=== PATIENT | male | born 1960 ===

== ENCOUNTER 2023-10-08 19:30 | Inpatient (IN) | payer BC ==
[~2023-10-08] VITALS: Ht 170.2 cm; Wt 72.0 kg
--- NOTE | 2023-10-08 20:20 | NUR ---
PT ARRIVED TO [facility] FROM [facility] VIA EMS. PT IS BEING ADMITTED WITH A SBO TO HOSPITALIST WITH A SURGICAL CONSULT. PT IS AXOX3. PT IS ON RA. PT'S VSS. PT HAD NS WITH 40KCL RUNNING IN TRANSIT, STOPPED ON ARRIVAL. KIRK PLANT OPERATIONS COORDINATOR BEDSIDE TO EVALUATE PT. KIRK NOTIFIED OF PTS ARRIVAL. 2030-KIRK AND BEDSIDE. PT IS NPO. LR STARTED. LAB CALLED FOR STAT LABS. PT ORIENTED TO ROOM AND FLOOR. CALL LIGHT GIVEN.
[2023-10-08] MEDS ORDERED: LR 1,000 ML IV SCH (20:30)
[2023-10-08] MEDS ORDERED: HYDROmorphone 0.5 MG/0.5 ML SYRINGE IV PRN (20:45)
[2023-10-08] MEDS ORDERED: metroNIDAZOLE 100 ML IV SCH (21:00)
[2023-10-08] MEDS ORDERED: Ondansetron 4 MG/2 ML VIAL IV PRN (21:00)
[2023-10-08 21:03] VITALS: BP_SYST 109
[2023-10-08 21:18] VITALS: BP 119/80; PULSE 80; TEMP 98.5
[2023-10-08 21:39] LABS: INR 1.3 (0.8-3.0); PROTHROMBIN TIME 13.5 SECONDS (9.7-12.8)
[2023-10-08 21:51] LABS: CALCIUM 8.4 mg/dL (8.4-10.2); CREATININE, serum 1.41 mg/dL (0.72-1.25); MAGNESIUM 2.1 mg/dL (1.6-2.6); PHOSPHOROUS 3.6 mg/dL (2.3-4.7); POTASSIUM 3.3 mmol/L (3.5-4.5)
[2023-10-08] MEDS ORDERED: Cefepime 1 G in Water For Injection,Sterile 10 ML IV SCH (22:00)
[2023-10-08] MEDS ORDERED: *Potassium Replacement Protocol MC SCH ×2 (22:30→22:45)
[2023-10-08] MEDS ORDERED: Potassium Chloride 100 ML IV SCH ×2 (22:30→22:45)
[2023-10-08 23:11] VITALS: BP 109/68; PULSE 73; TEMP 98.4
[2023-10-08 23:20] LABS: COLLECTION METHOD CLEAN CATCH
--- NOTE | 2023-10-08 23:50 | NUR ---
2315-PT COMPLAINING OF IV BURING. IV KCL SLOWED DOWN. 2325-PT COMPALINING THAT IV IS STILL BURINING. IV KCL CHANGED TO ANOTHER IV SITE AND SLOWED DOWN AGAIN. 2335-PT STILL STATING THAT IV IS BURING. KCL Y-SITED INTO IVF AND SLOWED DOWN.
[2023-10-09] VITALS (11 sets, daily range): BP systolic 101–137; BP diastolic 69–81; PULSE 72–106; TEMP 97.6–99.2
[2023-10-09 00:18] LABS: URINE COLOR Amber (YELLOW)
[2023-10-09 00:19] LABS: PH 5.5 (5.0-8.5); URINE APPEARANCE Clear (CLEAR/HAZY); URINE BLOOD Negative (NEGATIVE); URINE GLUCOSE Negative (NEGATIVE); URINE KETONE TRACE (NEGATIVE); URINE NITRATE Negative (NEGATIVE); URINE PROTEIN(semi-quant) 2+ (NEGATIVE); URINE UROBILINOGEN 0.2 E.U/dL (0.2-1.0)
[2023-10-09 00:24] LABS: MUCOUS Present (NOT PRESENT); URINE BACTERIA Moderate /hpf (NONE SEEN); URINE RBC 0-2 /hpf (0-2)
[2023-10-09 06:36] LABS: MEAN CELL VOLUME 86 fl (80.0-100.0); MEAN CORPUSCULAR HEMOGLOBIN 31 pg (27-31); MEAN CORPUSCULAR HGB CONC 35 g/dl (33.0-37.0); MEAN PLATELET VOLUME 9.9 fl (7.4-10.4); PLATELET COUNT 184 K/mm3 (130-400); RED BLOOD COUNT 3.94 M/mm3 (4.20-5.60)
[2023-10-09 06:51] LABS: HEMATOCRIT 33.9 % (42.0-52.0)
[2023-10-09 06:58] LABS: ALBUMIN 2.3 gm/dL (3.4-4.8); BILIRUBIN,TOTAL 1.7 mg/dL (0.2-1.2); CALCIUM 8.1 mg/dL (8.4-10.2); CREATININE, serum 0.91 mg/dL (0.72-1.25); POTASSIUM 3.2 mmol/L (3.5-4.5); TOTAL PROTEIN 5.3 gm/dL (6.2-8.1)
[2023-10-09] MEDS ORDERED: Potassium Chloride 100 ML IV SCH (07:00)
[2023-10-09 07:10] LABS: BAND 14 % (0-10); EOSINOPHIL 2 % (0-4); LYMPHOCYTE 4 % (20.0-51.0); NEUTROPHILS 79 % (42.0-75.2); PLATELET ESTIMATE NORMAL (NORMAL)
--- NOTE | 2023-10-09 07:41 | NUR ---
Patient awake, alert and oriented. C/O left sided abdominal pain, worsening with pain. PRN given as ordered. Bed in lowest position with call light within reach. Steady on feet, assisted to the bathroom.
[2023-10-09] MEDS ORDERED: Influenza Virus Vaccine, Quad '23-24 (6 MOS+) 0.5 ML SYRINGE IM SCH (09:00)
--- NOTE | 2023-10-09 10:00 | NUR ---
Customer Service Assistant met with patient to discuss discharge planning. Patient lives in [place] with his , Alona (ph#[phone]) who is at bedside. Patient does not have primary care set up as they only recently moved to [place]. Patient would be agreeable to have primary care set up with [facility] at discharge. Patient uses [facility] in for medications and does not use any DME. Patient is independent with ADLS and is employed at [employer]. Patient does not have DPOA-HC and is not interested in completing one at this time. Patient plans to return home at time of discharge. Discharge Plan: Home, needs assistance setting up PCP
[2023-10-09] MEDS ORDERED: MOTRIN 200200 MG/TAB PO (10:21)
[2023-10-09] MEDS ORDERED: Pantoprazole 40 MG in NS 10 ML IV SCH (11:00)
[2023-10-09] MEDS ORDERED: *Potassium Replacement Protocol MC SCH (11:00)
--- NOTE | 2023-10-09 12:28 | NUR ---
D: Initial visit: Barrel Burner stopped by room on rounds. Pt was resting and content with in the room. A: Pt has no needs right now. Pt has just moved from [place] to [place]. P: Barrel Burner informed pt that if he needed anything to let his nurse know. Barrel Burner will follow up as needed.
--- NOTE | 2023-10-09 18:00 | NUR ---
Patient able to tolerate clear liquids throughout the day, still having abdominal pain but states it is not worse after drinking fluids. Passing gas, no BM today. Bed in lowest position with call light within reach. at the bedside.
--- NOTE | 2023-10-09 18:50 | NUR ---
PT RESTING IN BED WATCHING TV. BEDSIDE. PT HAS IVF RUNNING AND KCL RUNNING. PT IS ON RA. PT IS NON TELE. PT DRINKING CLEAR LIQUIDS AND STATES ITS GOING OK. PT IS AXOX3. PT HAS CALL LIGHT AND INSTRUCTED TO CALL WITH ALL NEEDS.
[2023-10-10] VITALS (12 sets, daily range): BP systolic 111–142; BP diastolic 74–83; PULSE 97–111; TEMP 98.2–99.5
[2023-10-10 07:23] LABS: BASO % 0.2 % (0.0-2.0); EOS # 0.1 K/mm3 (0.0-0.7); EOS % 0.4 % (0.0-4.0); GRAN # 16.6 K/mm3 (1.4-6.5); GRAN % 89.4 % (42.2-75.2); HEMOGLOBIN 11.8 g/dl (13.5-18.0); LYMPH # 1.1 K/mm3 (1.2-3.4); LYMPH % 6.1 % (20.0-51.0); MEAN CELL VOLUME 87 fl (80.0-100.0); MEAN CORPUSCULAR HEMOGLOBIN 31 pg (27-31); MEAN CORPUSCULAR HGB CONC 35 g/dl (33.0-37.0); MEAN PLATELET VOLUME 9.8 fl (7.4-10.4); MONO # 0.5 K/mm3 (0.1-0.6); MONO % 2.7 % (1.7-9.3); PLATELET COUNT 220 K/mm3 (130-400); RED BLOOD COUNT 3.83 M/mm3 (4.20-5.60); REDCELL DISTRIBUTION WIDTH-CV 13.3 % (11.5-14.5)
[2023-10-10 07:24] LABS: HEMATOCRIT 33.4 % (42.0-52.0)
[2023-10-10 07:39] LABS: ALBUMIN 2.1 gm/dL (3.4-4.8); BILIRUBIN,TOTAL 1.4 mg/dL (0.2-1.2); CALCIUM 8.3 mg/dL (8.4-10.2); CREATININE, serum 0.8 mg/dL (0.72-1.25); TOTAL PROTEIN 5.4 gm/dL (6.2-8.1)
[2023-10-10 07:50] LABS: POTASSIUM 2.9 mmol/L (3.5-4.5)
[2023-10-10] MEDS ORDERED: *Potassium Replacement Protocol MC SCH (09:45)
[2023-10-10] MEDS ORDERED: Potassium Bicarbonate/Citrate 20 MEQ Effervescent TAB PO SCH (10:00)
--- NOTE | 2023-10-10 18:00 | NUR ---
PATIENT ALERT AND ORIENTED X4. PATIENT REPORTS FEELING WEAKER AND STILL FEELS BLOATED. PATIENT HAD A BOWEL MOVEMENT TODAY AND SOME IRRITATION TO HIS ANUS. PATIENT REPORTED PAIN OF 3 AND 5 BUT DID REFUSED PAIN MED UNTIL LATER WHEN HE HAD MORE PAIN. PRN DELAUDID WAS GIVEN. PATIENT ALSO REPORTED FEELING NAUSEOUS AND PRN MEDICATION WAS GIVEN FOR IT ASWELL. PATIENT HAD A CRITICAL POTASSIUM LAB VALUE THIS MORNING AT THE BEGINNING OF SHIFT AND DOCTOR HORACIO WAS NOTIFIED ABOUT THE POTASSIUM CRITICAL LAB VALUE. PATIENT FLUIDS INFUSING PER EMAR. PATIENT AT BEDSIDE. CALL LIGHT WITHIN REACH. BED AT LOWEST POSITION.
[2023-10-10] MEDS ORDERED: PHENYLEPHRINE RC ONE (20:15)
[2023-10-10] MEDS ORDERED: COCOA BUTTER RC ONE (20:15)
[2023-10-10] MEDS ORDERED: Phenylephrine/Mineral Oil/Petrolatum 57 GM TUBE RC PRN (21:15)
--- NOTE | 2023-10-10 21:20 | NUR ---
Patient resting in bed with at bedside. Rates his pain at 3/10 at rest but 8/10 with movement. Denies any needs at this time. Assessment complete. IV in Right AC infusing with no complicaitons. IV in left forearm flushes easily with no complications. Call light and personal items in reach. Bed in low position.
[2023-10-11] VITALS (12 sets, daily range): BP systolic 112–142; BP diastolic 71–87; PULSE 88–97; TEMP 97.8–98.5
[2023-10-11] MEDS ORDERED: Potassium Bicarbonate/Citrate 20 MEQ Effervescent TAB PO SCH ×2 (02:45→12:30)
--- NOTE | 2023-10-11 06:10 | NUR ---
Patient resting in bed. States his pain at rest is 2/10 but 10/10 with movement, pain meds given. Denies any needs this morning. Questions answered. No changes over night. Call light and personal items in reach. Bed in low position.
[2023-10-11 07:07] LABS: ALBUMIN 2.1 gm/dL (3.4-4.8); BILIRUBIN,TOTAL 1.9 mg/dL (0.2-1.2); CALCIUM 8.2 mg/dL (8.4-10.2); CREATININE, serum 0.76 mg/dL (0.72-1.25); POTASSIUM 3.4 mmol/L (3.5-4.5); TOTAL PROTEIN 5.1 gm/dL (6.2-8.1)
[2023-10-11 07:13] LABS: HEMOGLOBIN 11.6 g/dl (13.5-18.0); MEAN CELL VOLUME 88 fl (80.0-100.0); MEAN CORPUSCULAR HEMOGLOBIN 31 pg (27-31); MEAN CORPUSCULAR HGB CONC 36 g/dl (33.0-37.0); MEAN PLATELET VOLUME 9.6 fl (7.4-10.4); PLATELET COUNT 234 K/mm3 (130-400); REDCELL DISTRIBUTION WIDTH-CV 13.5 % (11.5-14.5)
[2023-10-11 07:14] LABS: HEMATOCRIT 32.5 % (42.0-52.0)
[2023-10-11 07:56] LABS: BAND 2 % (0-10); EOSINOPHIL 1 % (0-4); LYMPHOCYTE 5 % (20.0-51.0); NEUTROPHILS 89 % (42.0-75.2); PLATELET ESTIMATE NORMAL (NORMAL)
--- NOTE | 2023-10-11 09:00 | NUR ---
Patient resting in bed, awake, alert and oriented. States he still has abdominal pain with movement and coughing but is improving, requiring less frequent PRNs. Steady on feet. States he had 2 BMs last night, none yet this AM. Is tolerating clears, having some discomfort after eating full liquids. at the bedside. Bed in lowest position with call light within reach.
[2023-10-11] MEDS ORDERED: Docusate Sodium 100 MG CAP PO SCH (13:08)
[2023-10-11] MEDS ORDERED: Acetaminophen 325 MG TAB PO PRN (15:45)
--- NOTE | 2023-10-11 18:20 | NUR ---
Patient continues to deny pain acute pain , just c/o bloating with food. Ambulating in the room, repositioning self frequently. Denies needs at this time. x1 small dark BM this evening, passing gas.
[2023-10-11] MEDS ORDERED: oxyCODONE/Acetaminophen 5-325 MG TAB PO PRN (20:30)
--- NOTE | 2023-10-11 21:30 | NUR ---
Patient resting in bed with at bedside. Rates his pain at 7/10 in his left abdominal quadrants, pain meds given. Denies any needs at this time. Assessment complete. IV in left forearm infusing with no complications. Call light and personal items in reach. Bed in low position.
[2023-10-12] VITALS (12 sets, daily range): BP systolic 125–139; BP diastolic 70–87; PULSE 77–93; TEMP 97.4–99
--- NOTE | 2023-10-12 05:30 | NUR ---
Patient resting in bed. Rates his pain at 5/10 at this time from his hemorrhoids, denies any pian meds at this time. No changes over night. Call light and personal items in reach. Bed in low position.
--- NOTE | 2023-10-12 08:20 | NUR ---
patient alert and oriented x4. patient reports pain of 4/10 in his stomach- left quadrant and 10/10 on bottom(hemorrhoids). patient reports having diarrhea most of the night and that the bloating keeps getting worse. patient expresses feelings that" something is really wrong with me, I just know it, I keep feeling worse and worse." as he was tearing up. call light within reach, bed at lowest position.
[2023-10-12 09:39] LABS: HEMOGLOBIN 11.3 g/dl (13.5-18.0); MEAN CELL VOLUME 88 fl (80.0-100.0); MEAN CORPUSCULAR HEMOGLOBIN 31 pg (27-31); MEAN CORPUSCULAR HGB CONC 35 g/dl (33.0-37.0); MEAN PLATELET VOLUME 8.8 fl (7.4-10.4); PLATELET COUNT 266 K/mm3 (130-400); RED BLOOD COUNT 3.62 M/mm3 (4.20-5.60); REDCELL DISTRIBUTION WIDTH-CV 13.4 % (11.5-14.5)
[2023-10-12] MEDS ORDERED: Iohexol 300 - 100 ML VIAL IV ONE (11:55)
[2023-10-12] MEDS ORDERED: NS 50 ML IV SCH (11:56)
--- NOTE | 2023-10-12 13:28 | NUR ---
Patient resting in bed. is at bedside. Pain rated 4/10. Call light within reach.
--- NOTE | 2023-10-12 21:00 | NUR ---
Patient resting in bed with at bedside. Rates his pain at 4/10, pain meds given. Assissted patient with Sitz bath. Denies any other needs at this time. Assessment complet. IV in left forearm flushes easily with no complications. Call light and personal items in reach. Bed in low position.
[2023-10-13] VITALS (11 sets, daily range): BP systolic 124–136; BP diastolic 73–82; PULSE 77–83; TEMP 97.8–98.7
--- NOTE | 2023-10-13 06:00 | NUR ---
Patient resting in bed. Patient rates his pain at 4/10 at this time, denies need for meds. Denies any needs at this time. Patient had an uneventful evening. Patient was able to get more sleep than the previous night and said the Sitz bath helped. Call light and personal items in reach. Bed in low position.
[2023-10-13 06:40] LABS: BASO % 0.2 % (0.0-2.0); EOS # 0.1 K/mm3 (0.0-0.7); EOS % 0.6 % (0.0-4.0); GRAN # 10.6 K/mm3 (1.4-6.5); GRAN % 81.5 % (42.2-75.2); HEMOGLOBIN 11.6 g/dl (13.5-18.0); LYMPH # 1.3 K/mm3 (1.2-3.4); LYMPH % 9.7 % (20.0-51.0); MEAN CELL VOLUME 89 fl (80.0-100.0); MEAN CORPUSCULAR HEMOGLOBIN 31 pg (27-31); MEAN CORPUSCULAR HGB CONC 34 g/dl (33.0-37.0); MEAN PLATELET VOLUME 8.7 fl (7.4-10.4); MONO # 0.9 K/mm3 (0.1-0.6); MONO % 7.2 % (1.7-9.3); PLATELET COUNT 310 K/mm3 (130-400); RED BLOOD COUNT 3.79 M/mm3 (4.20-5.60); REDCELL DISTRIBUTION WIDTH-CV 13.5 % (11.5-14.5)
[2023-10-13 06:46] LABS: HEMATOCRIT 33.7 % (42.0-52.0)
[2023-10-13 07:00] LABS: ALBUMIN 2.3 gm/dL (3.4-4.8); BILIRUBIN,TOTAL 1.2 mg/dL (0.2-1.2); CALCIUM 8.1 mg/dL (8.4-10.2); CREATININE, serum 0.75 mg/dL (0.72-1.25); POTASSIUM 3.4 mmol/L (3.5-4.5); TOTAL PROTEIN 5.7 gm/dL (6.2-8.1)
--- NOTE | 2023-10-13 07:35 | NUR ---
Patient alert resting in bed. Stated pain 02/18. Pain medication administered. Call light within reach.
[2023-10-13 08:11] LABS: MAGNESIUM 2.1 mg/dL (1.6-2.6); PHOSPHOROUS 2.8 mg/dL (2.3-4.7)
[2023-10-14] VITALS (12 sets, daily range): BP systolic 120–136; BP diastolic 76–86; PULSE 73–85; TEMP 98.1–98.3
--- NOTE | 2023-10-14 07:00 | NUR ---
PATIENT AWAKE AND ALERT, SITTING UP IN BED. PATIENT DENIES ANY NEEDS OR COMPLAINTS AT THIS TIME. PATIENT VERBALIZING HE DOES NOT WANT HIS SUPPOSITORY THIS AM, PATIENT TO CALL RN IF HE CHANGES MIND. CALL LIGHT WITHIN REACH,
[2023-10-14 07:17] LABS: BASO % 0.2 % (0.0-2.0); EOS # 0.1 K/mm3 (0.0-0.7); EOS % 0.8 % (0.0-4.0); GRAN # 10.2 K/mm3 (1.4-6.5); GRAN % 84.1 % (42.2-75.2); HEMOGLOBIN 11.7 g/dl (13.5-18.0); LYMPH # 0.9 K/mm3 (1.2-3.4); LYMPH % 7.1 % (20.0-51.0); MEAN CELL VOLUME 88 fl (80.0-100.0); MEAN CORPUSCULAR HEMOGLOBIN 31 pg (27-31); MEAN CORPUSCULAR HGB CONC 35 g/dl (33.0-37.0); MEAN PLATELET VOLUME 8.5 fl (7.4-10.4); MONO # 0.9 K/mm3 (0.1-0.6); PLATELET COUNT 327 K/mm3 (130-400); REDCELL DISTRIBUTION WIDTH-CV 13.3 % (11.5-14.5)
[2023-10-14 07:19] LABS: HEMATOCRIT 33.3 % (42.0-52.0)
[2023-10-14 07:36] LABS: ALBUMIN 2.2 gm/dL (3.4-4.8); CALCIUM 8.4 mg/dL (8.4-10.2); CREATININE, serum 0.77 mg/dL (0.72-1.25); MAGNESIUM 2.1 mg/dL (1.6-2.6); PHOSPHOROUS 2.4 mg/dL (2.3-4.7); POTASSIUM 3.3 mmol/L (3.5-4.5)
[2023-10-14] MEDS ORDERED: Potassium Bicarbonate/Citrate 20 MEQ Effervescent TAB PO SCH (08:15)
--- NOTE | 2023-10-14 08:39 | NUR ---
PATIENT STATED HE DOES NOT WANT TO DRINK EFFER-K POTASSIM SUPPL. PHARMACY CALLED AND WILL CHANGE TO ORAL TABLETS.
--- NOTE | 2023-10-14 13:02 | NUR ---
PATIENT STATED POTASSIUM UPSETS HS STOMACH, WOULD LIKE TO WAIT ON RECIEVING DOSE.
--- NOTE | 2023-10-14 17:32 | NUR ---
PATIET DIET CHANGED. PATIENT EDUCATED ON HOW TO ORDER MEALS, AT BEDSIDE.
--- NOTE | 2023-10-14 21:20 | NUR ---
Patient resting in bed. Rates his pain at 4/10 at this time, denies need for pain meds. Denies any needs. Assessment complete. IV in left forearm flushes easily with no complications. Call light and personal items in reach. Bed in low position.
[2023-10-15] VITALS (12 sets, daily range): BP systolic 121–136; BP diastolic 72–89; PULSE 74–104; TEMP 98–98.4
--- NOTE | 2023-10-15 05:30 | NUR ---
Patient resting in bed. New IV started in left forearm, old one removed. Rates his pian at 2/10 this morning. Denies any needs. No changes over night. Call light and personal items in reach. Bed in low position.
--- NOTE | 2023-10-15 07:00 | NUR ---
BEDSIDE SHIFT REPORT RECIEVED. PATIENT ASLEEP WHEN RN ENTERED ROOM. AROUSED EASILY TO NAME, PATIENT DENEIS ANY NEEDS OR COMPLAINTS AT THIS TIME. CALL LIGHT WITHIN REACH.
[2023-10-15 08:32] LABS: ALBUMIN 2.3 gm/dL (3.4-4.8); CALCIUM 8.5 mg/dL (8.4-10.2); CREATININE, serum 0.76 mg/dL (0.72-1.25); MAGNESIUM 2.3 mg/dL (1.6-2.6); PHOSPHOROUS 2.8 mg/dL (2.3-4.7); POTASSIUM 3.5 mmol/L (3.5-4.5)
--- NOTE | 2023-10-15 17:00 | NUR ---
PATINET AWAKE AND ALERT, SITTING UP IN BED. PATIENTS AT BEDSIDE. PATINET DENEIS ANY NEEDS OR COMPLAINTS AT THIS TIME. CALL LIGHT WITHIN REACH.
--- NOTE | 2023-10-15 21:30 | NUR ---
Patient resting in bed with at beside. Assissted patient with Sitz bath, stated it helped. Rates pain at 6/10, PRN pain meds given. Denies any other needs at this time. Assessment complete. IV in left forearm flushes easily with no complications. Call light and personal items in reach. Bed in low position.
[2023-10-16 00:48] VITALS: BP_SYST 132
[2023-10-16 05:33] VITALS: BP 131/81; PULSE 99; TEMP 98.2
[2023-10-16 05:34] VITALS: BP_SYST 131
--- NOTE | 2023-10-16 05:41 | NUR ---
Patient resting in bed. Rates his pain at 3/10, denies anything for pain. Jello provided, denies any other needs. No changes over night. Call light and personal items in reach. Bed in low position and bed alarm on.
[2023-10-16 07:14] LABS: BASO % 0.4 % (0.0-2.0); EOS # 0.1 K/mm3 (0.0-0.7); EOS % 0.9 % (0.0-4.0); GRAN # 8.5 K/mm3 (1.4-6.5); GRAN % 77.6 % (42.2-75.2); HEMOGLOBIN 12.4 g/dl (13.5-18.0); LYMPH # 1.4 K/mm3 (1.2-3.4); LYMPH % 12.7 % (20.0-51.0); MEAN CELL VOLUME 88 fl (80.0-100.0); MEAN CORPUSCULAR HEMOGLOBIN 30 pg (27-31); MEAN CORPUSCULAR HGB CONC 34 g/dl (33.0-37.0); MEAN PLATELET VOLUME 8.8 fl (7.4-10.4); MONO # 0.9 K/mm3 (0.1-0.6); MONO % 7.8 % (1.7-9.3); REDCELL DISTRIBUTION WIDTH-CV 13.2 % (11.5-14.5)
[2023-10-16 07:18] LABS: HEMATOCRIT 36.1 % (42.0-52.0); PLATELET COUNT 477 K/mm3 (130-400)
[2023-10-16 08:04] VITALS: BP 128/83; PULSE 89; TEMP 97.6
[2023-10-16] MEDS ORDERED: Amoxicillin/Clavulanate K+ 875/125 MG TAB PO SCH (08:09)
[2023-10-16] MEDS ORDERED: AMOXICILLIN 8751 TAB PO (08:36)
[2023-10-16] MEDS ORDERED: FLAGYL500 MG PO (08:37)
[2023-10-16 09:00] VITALS: BP_SYST 128
[2023-10-16] MEDS ORDERED: metroNIDAZOLE 250 MG TAB PO SCH (09:00)
--- NOTE | 2023-10-16 12:40 | NUR ---
patient discharge instructions given. patient verbalized understanding. patient iv and tele removed. patient escorted out via desean staff. accompanied patient.
--- NOTE | 2023-10-16 14:08 | NUR ---
Soaking Room Operator followed on clinical rounds and patient is cleared for discharge. Jenni, Front Office Attendant contacted [facility] to request patient set up and faxed patient information. Discharge Plan: Home
== END 2023-10-16 12:40 | disposition home or self-care (01) | DRG 872 ==
LOC: MEDICAL 19:30
PROVIDERS: Internal Medicine; Nurse Practitioner Family; Physician Assistant; ADMIT Internal Medicine
DX: A41.9 Sepsis, unspecified organism (principal); K56.600 Partial intestinal obstruction, unspecified as to cause; K57.20 Diverticulitis of large intestine with perforation and abscess without bleeding; E44.0 Moderate protein-calorie malnutrition; E87.20 Acidosis, unspecified; E87.1 Hypo-osmolality and hyponatremia; N17.9 Acute kidney failure, unspecified; K56.7 Ileus, unspecified; E87.8 Other disorders of electrolyte and fluid balance, not elsewhere classified; R65.20 Severe sepsis without septic shock; E87.6 Hypokalemia; K64.8 Other hemorrhoids; R79.89 Other specified abnormal findings of blood chemistry; R74.01 Elevation of levels of liver transaminase levels; Z87.442 Personal history of urinary calculi; Z88.0 Allergy status to penicillin; Z68.24 Body mass index [BMI] 24.0-24.9, adult
CPT/HCPCS: C9113; J0692; J1170; J1836; J2405; J3480; J7120; Q9967

== ENCOUNTER 2024-01-04 10:02 | Inpatient (IN) | payer BC ==
[~2024-01-04] VITALS: Ht 170.2 cm; Wt 73.1 kg
[~2024-01-04 10:02] MED LIST: AMOXICILLIN 8751 TAB PO; FLAGYL500 MG PO; MOTRIN 200200 MG/TAB PO
[2024-03-27] VITALS (13 sets, daily range): BP systolic 107–141; BP diastolic 65–83; PULSE 59–79; TEMP 97.3–98.5
[2024-03-27] MEDS ORDERED: LR 1,000 ML IV SCH ×3 (05:00→10:00)
--- NOTE | 2024-03-27 05:47 | NUR ---
PATIENT ADMITTED TO ROOM 8 AMBULATORY ACCOMPANIED BY SPOUSE. VOICES UNDERSTANDING OF SURGERY. CONSENTS SIGNED FOR SURGERY AND ANESTHESIA. STATES HAS BEEN NAUSEATED AND VOMITED AFTER TAKING SOME OF THE GRAPE JUICE EARLY THIS AM. 0623 LAZARO SNYDER NOTIFIED OF NAUSEA. ORDER FOR SCOPLAMINE PATCH AND 25MG PO ANTIVERT RECEIVED AND GIVEN.
[2024-03-27] MEDS ORDERED: metroNIDAZOLE 500 MG/100 ML IVPB IV SCH (06:15)
[2024-03-27] MEDS ORDERED: Midazolam 2 MG/2 ML VIAL ONE (06:20)
[2024-03-27] MEDS ORDERED: fentaNYL 50 MCG/ML 2 ML VIAL ONE (06:20)
[2024-03-27] MEDS ORDERED: Rocuronium 50 MG/5 ML Multi-Dose VIAL ONE ×2 (06:20→07:53)
[2024-03-27] MEDS ORDERED: Lidocaine PF 2% (20 MG/ML) 5 ML VIAL ONE ×5 (06:20→07:57)
[2024-03-27] MEDS ORDERED: Ondansetron 4 MG/2 ML VIAL ONE (06:21)
[2024-03-27] MEDS ORDERED: dexAMETHasone 10 MG/ML VIAL ONE (06:21)
[2024-03-27] MEDS ORDERED: Acetaminophen 500 MG TAB PO SCH ×2 (06:30→12:15)
[2024-03-27] MEDS ORDERED: Meclizine 25 MG TAB PO SCH (06:30)
[2024-03-27] MEDS ORDERED: Gabapentin 100 MG CAP PO SCH (06:30)
[2024-03-27] MEDS ORDERED: Scopolamine 1 MG Delivered 3-Day PATCH TD ONE (06:30)
[2024-03-27] MEDS ORDERED: Celecoxib 200 MG CAP PO SCH (06:30)
[2024-03-27] MEDS ORDERED: TYLENOL 500MG500 MG PO (06:36)
[2024-03-27] MEDS ORDERED: NS 100 ML IV ONE (07:10)
[2024-03-27] MEDS ORDERED: ePHEDrine 50 MG/ML VIAL ONE (07:49)
[2024-03-27] MEDS ORDERED: HYDROmorphone 1 MG/1 ML SYRINGE [PACU/SDC ONLY] IV PRN (08:30)
[2024-03-27] MEDS ORDERED: Ondansetron 4 MG/2 ML VIAL IV PRN ×2 (08:30→10:00)
[2024-03-27] MEDS ORDERED: fentaNYL 50 MCG/ML 1 ML SYRINGE/VIAL [PACU/SDC ONLY] IV PRN (08:30)
[2024-03-27] MEDS ORDERED: droPERidol 2.5 MG/ML 2 ML VIAL IV PRN (08:30)
[2024-03-27] MEDS ORDERED: Ketorolac 30 MG/ML VIAL ONE (09:21)
[2024-03-27] MEDS ORDERED: Naloxone 0.4 MG/ML VIAL IV PRN (10:00)
[2024-03-27] MEDS ORDERED: oxyCODONE 5 MG TAB PO PRN (10:00)
[2024-03-27] MEDS ORDERED: HYDROmorphone 0.5 MG/0.5 ML SYRINGE IV PRN (10:00)
--- NOTE | 2024-03-27 11:07 | NUR ---
Pt. to the floor at 1040 from PACU. Pt. is A&Ox3, assessment complete. Vitals wnl. IV to lt. hand patent. Pt. denies pain or other needs, call light within reach.
[2024-03-27] MEDS ORDERED: ceFAZolin 1 G in Water For Injection,Sterile 10 ML IV SCH (14:30)
[2024-03-27] MEDS ORDERED: Ibuprofen 600 MG TAB PO SCH (15:30)
--- NOTE | 2024-03-27 20:00 | NUR ---
Assessment complete. A&Ox3. Denies nausea/shortness of breath. Rating pain 2/10 to abdomen-denies need for intervention. Tolerating clear liquid diet. 5 abd lap sites with bandaids CDI. Low transverse incision with gauze/medipore-CDI. Alva cath with clear yellow urine. INT to left hand flushes without difficulty-no s/s of infiltration noted. Plan of care discussed for this shift to include pain control/meds/calling for questions/concerns. Will monitor.
[2024-03-28] VITALS (13 sets, daily range): BP systolic 103–117; BP diastolic 53–71; PULSE 55–68; TEMP 97.9–98.4
--- NOTE | 2024-03-28 00:45 | NUR ---
Resting eyes closed. NO s/s of pain or discomfort noted. Will monitor.
--- NOTE | 2024-03-28 05:56 | NUR ---
Patient was up most of night due to medication schedule. Rating pain 2/10-denied need for intervention-received scheduled tylenol/motrin. Tolerated diet-advanced to low residue for breakfast. Left Hand INT flushes without difficulty. NO s/s of infiltration noted. Alva cath with clear yellow urine. Denies current questions/concerns. Call light in reach. Will monitor.
--- NOTE | 2024-03-28 06:28 | NUR ---
Patient called stating "I had a blow out." Has been incontinent of stool.
[2024-03-28 06:30] LABS: CALCIUM 8.8 mg/dL (8.4-10.2); CREATININE, serum 0.84 mg/dL (0.72-1.25); POTASSIUM 3.8 mEq/L (3.5-4.5)
--- NOTE | 2024-03-28 06:44 | NUR ---
Alva cath DCd at this time. Tolerated well.
[2024-03-28 06:53] LABS: BASO % 0.1 % (0.0-2.0); EOS % 0.2 % (0.0-4.0); GRAN # 9.5 K/mm3 (1.4-6.5); GRAN % 71.5 % (42.2-75.2); HEMOGLOBIN 12.4 g/dl (13.5-18.0); LYMPH # 2.5 K/mm3 (1.2-3.4); LYMPH % 18.9 % (20.0-51.0); MEAN CELL VOLUME 87 fl (80.0-100.0); MEAN CORPUSCULAR HEMOGLOBIN 30 pg (27-31); MEAN CORPUSCULAR HGB CONC 34 g/dl (33.0-37.0); MEAN PLATELET VOLUME 10.4 fl (7.4-10.4); MONO # 1.2 K/mm3 (0.1-0.6); PLATELET COUNT 224 K/mm3 (130-400); RED BLOOD COUNT 4.15 M/mm3 (4.20-5.60); REDCELL DISTRIBUTION WIDTH-CV 12.6 % (11.5-14.5)
[2024-03-28 06:55] LABS: HEMATOCRIT 36.1 % (42.0-52.0)
--- NOTE | 2024-03-28 09:20 | NUR ---
Administered scheduled meds per MAR. Pt states pain is at a 2/10. Performed shift assessment. Noted hyperactive bowel sounds. Pt. has not voided since yi was discontinued this morning. All other findings WNL. Pt. inquiring about discharge plans and is hoping to d/c today. Questions addressed by DELVIN Lam. No complaints or requests at this time. Call light in reach.
--- NOTE | 2024-03-28 11:15 | NUR ---
template layout worker met with pt and , Alona [phone] to discuss intake information. He reports to live with his in [place]. He sees Dr. Chinchilla for PCP needs and obtains medications from [facility] with no difficulties. He reports to be independent with ADLS and uses no DME. He does not have a DPOA-HC and is agreeable to this being NOK. Discharge Plan: home
--- NOTE | 2024-03-28 12:24 | NUR ---
D: Waste Specialist stopped by room on rounds. A: Pt was resting and content with in the room. No needs right now. Pt appreciated the visit. P: Waste Specialist informed pt that if he needed anything from the reverberatory skimmer area to let his nurse know. Waste Specialist will follow up as needed.
[2024-03-28] MEDS ORDERED: traMADol 50 MG TAB PO PRN (20:00)
--- NOTE | 2024-03-28 20:01 | NUR ---
Patient c/o pain to abdomen-rating pain 5/10 on pain scale. Is currently on a scheduled tylenol/motrin regimen and that is not due until 2129. Patient states he is unable to take the oxycodone as it causes nausea. Spoke with Dr Hurtado and new orders received for tramadol 50mg q6h PRN pain. Patient states he is able to take tramadol without issue. Will administer once verified.
--- NOTE | 2024-03-28 21:30 | NUR ---
Patient resting eyes closed. Scheduled motrin due at this time but patient requested to not wake him up if he is sleeping post tramadol. Will reassess.
[2024-03-29] VITALS (7 sets, daily range): BP systolic 102–117; BP diastolic 66–74; PULSE 53–62; TEMP 97.6–98.2
--- NOTE | 2024-03-29 | NUR ---
Patient resting in bed eyes closed. States his pain is a zero after taking the tramadol and does not need motrin at this time. VS stable. WIll monitor.
--- NOTE | 2024-03-29 03:42 | NUR ---
Patient resting eyes closed. Requested this nurse not wake him up for scheduled tylenol/motrin which is due now. Stated earlier in shift he would call for meds if needed.
--- NOTE | 2024-03-29 05:32 | NUR ---
Patient rested better this shift with cares and med pass combined. Did received one dose of tramadol with good results. Refused 0300 scheduled tylenol/motrin stating not to wake him if he is sleeping. Appeared to be resting comfortably. This nurse to room this AM and patient states he still does not want tyelnol/motrin-rating pain 0/10 stating "I feel really good." Encouraged to call if pain level increases and wanting scheduled pain control. Verbalizes understanding. Has been up ambulating. Voiding without difficulty. Tolerating PO. +BM/+flatus. Denies current questions/concerns. Call light in reach. Will monitor.
--- NOTE | 2024-03-29 09:16 | NUR ---
PATIENT ALERT AND ORIENTED X4. VSS. PATIENT HERE FOR MOOSE SIGMOIDECTOMY. LAPS X5 CDI WITH BANDAIDS, ONE LOW TRANSVERSE WITH GAUZE/METAPOR TAPE, CDI. IV TO LEFT HAND INT AND FLUSHES WELL. PATIENT ON RA. PATIENT REPORTS PAIN 2/10, DENIES NEED FOR NARCOTICS, REQUESTING ONLY SCHEDULED TYLENOL AND MOTRIN. PATIENT TOLERATING PO, PATIENT REPORTS HAVING BM. NO FURTHER NEEDS. CALL LIGHT IN REACH.
[2024-03-29] MEDS ORDERED: ROXICODONE 55 MG/TAB PO (13:55)
--- NOTE | 2024-03-29 17:36 | NUR ---
DISCHARGE INSTRUCTIONS PROVIDED. PATIENT EDUCATION GIVEN. IV DC'D. FOLLOW UP APPOINTMENT DISCUSSED. MEDICATION REVIEWED. PATIENT DENIES ANY QUESTIONS OR CONCERNS. PATIENT ESCORTED OUT WITH BELONGINGS VIA WHEELCHAIR.
== END 2024-03-29 17:36 | disposition home or self-care (01) | DRG 331 ==
LOC: INPTSU 03-27 05:32 → SURG 03-27 05:32
PROVIDERS: ADMIT Surgery
PROC: 8E0W4CZ Robotic Assisted Procedure of Trunk Region, Percutaneous Endoscopic Approach (ICD-10-PCS; 2024-03-27)
PROC: 0DBN4ZZ Excision of Sigmoid Colon, Percutaneous Endoscopic Approach (ICD-10-PCS; principal; 2024-03-27 07:30)
DX: K57.20 Diverticulitis of large intestine with perforation and abscess without bleeding (principal); Z87.891 Personal history of nicotine dependence; Z88.0 Allergy status to penicillin
CPT/HCPCS: A4314; A9284; J0690; J1100; J1170; J1836; J1885; J2250; J2405; J2704; J2795; J3010; J7120